=== PATIENT | male | born 1960 | race Caucasian/White ===

== ENCOUNTER 2021-07-25 13:17 | Emergency (ER) | payer BC ==
[2021-07-25] MEDS ORDERED: DECADRON 10MG INJ. IV ONE (13:43)
[2021-07-25] MEDS ORDERED: Sodium Chloride 0.9% 1000 ML 1,000 ML IV STA ×2 (13:45→16:04)
[2021-07-25] MEDS ORDERED: DECADRON 10MG INJ. ONE (13:53)
[2021-07-25] MEDS ORDERED: Sodium Chloride 0.9% 1000 ML 1,000 ML ONE ×2 (13:53→16:05)
[2021-07-25 14:25] LABS: Absolute Neutrophil Ct (ANC) 5.13 (1.4-6.9); Basophil (Absolute #) 0 (0-0.4); Eosinophil (Absolute #) 0 (0-0.5); Hematocrit 52.8 % (42-50); Hemoglobin 18.9 gm/dl (12.5-18.0); Lymphocyte (Absolute #) 0.43 (1.0-4.6); Lymphocytes % 7.4 % (24.0-44.0); Mean Corpuscular Hemoglobin 36.1 pg (26-32); Mean Corpuscular Hgb Concent. 35.8 g/dl (32-36); Mean Platelet Volume 12.2 fl (7.5-11.0); Monocyte (Absolute #) 0.25 (0.0-1.3); Monocytes % 4.3 % (0.0-12.0); Neutrophil % 88.3 % (36.0-66.0); Platelet Count 79 K/mm3 (150-450); Red Blood Count 5.23 M/mm3 (4.1-5.6); Red Cell Distribution Width 12.8 % (11.5-14.0); White Blood Count 5.8 K/mm3 (4.0-10.5)
--- NOTE | 2021-07-25 14:36 | XRAY ---
Indication: Cough. Positive Covid 19. Comparison: August 14, 2011. Portable chest demonstrates new minimal right costophrenic angle interstitial alveolar opacities without consolidation/large effusion. Remaining chest unchanged with COPD and right base fibrosis/scarring with suture material. Heart not enlarged. Bony thorax intact again with mild degenerative changes.
[2021-07-25 14:49] LABS: MAGNESIUM 1.6 mg/dL (1.6-2.3); NT PRO BNP 97.1 pg/mL (0-900)
[2021-07-25 14:50] LABS: Slide Review 1 YES
[2021-07-25] MEDS ORDERED: ROCEPHIN 2 Gm-D5w 50ML BAG** 2 G/50 ML IVPB IV ONE (15:32)
[2021-07-25] MEDS ORDERED: Zithromax 500 MG/ 250 ML NaCl Premix 500 MG/250 ML IVPB IV STA (15:32)
[2021-07-25] MEDS ORDERED: ROCEPHIN 2 Gm-D5w 50ML BAG** 2 G/50 ML IVPB IV STA (15:33)
[2021-07-25] MEDS ORDERED: BABY ASPIRIN 81 MG CHEW PO ONE (15:34)
[2021-07-25] MEDS ORDERED: TYLENOL 325 MG ONE (15:38)
[2021-07-25] MEDS ORDERED: TYLENOL 325 MG PO STA (15:40)
[2021-07-25] MEDS ORDERED: REMDESIVIR 200 MG in Sodium Chloride 0.9% 250 ML 250 ML IV ONE (15:53)
[2021-07-25 15:54] LABS: ALBUMIN 4.3 g/dL (3.5-5.0); ANION GAP 20.7 MEQ/L (5-15); BILIRUBIN,TOTAL 0.8 mg/dL (0.2-1.3); Calcium 9.3 mg/dL (8.4-10.2); Creatinine 1 1.52 mg/dL (0.66-1.25); Potassium 4.1 mmol/L (3.5-5.1); Total Protein 7.1 g/dL (6.3-8.2)
[2021-07-25] MEDS ORDERED: Zithromax 500 MG/ 250 ML NaCl Premix 500 MG/250 ML IVPB IV ONE (16:05)
--- NOTE | 2021-07-25 16:24 | ERPHSYRPT ---
- History of Present Illness Time Seen by Provider: 07/25/21 13:42 Source: patient Exam Limitations: no limitations Patient Subjective Stated Complaint: " I was suppose to come in for a Covid infusion but I'm just too weak and they thought I should come here". Triage Nursing Assessment: Pt presents to ER, noted Covid+. Was suppose to be getting Covid infusion today but "just too weak". Pt does appear weak and states has "fell a couple of times today due to weakness". Pt is alert and oriented x3. Respirations are slightly labored. Lungs clear but diminished throughout. Cough noted with scant sputum. Pt complains of nausea and generalized weakness. Pt is pale, hot to touch. Noted febrile upon triage. Pt denies pain. Physician History: 60 years old male with 1 week history of cough congestion, body aches with fat igue and tiredness with progressive worsening is sent in ER from infusion center where he went for antibody infusion but was not feeling well. Patient reports he has been having multiple episodes of loose stool and is not able to hold much down, feels weak fatigued and tired. This has been going on for the last 3 to 4 days. Denies any hematochezia. No abdominal pain. Has nausea but no vomiting. Also have fever chills responding to Tylenol. Shortness of breath with activity although maintaining oxygen saturation around 95% on room air. Patient did test positive for COVID-19 couple days ago. Timing/Duration: week(s) (1), gradual onset, worse Severity: moderate Modifying Factors: Worsens With: movement Associated Symptoms: nausea, shortness of breath, cough, chills, fever, headaches, loss of appetite, malaise, weakness, No vomiting Allergies/Adverse Reactions: No Known Drug Allergies Allergy (Verified 07/29/21 12:05) Home Medications: Fluticasone/Salmeterol 115/21 [Advair Hfa 115/21 Common canister*] 1 puff IN DAILY 07/25/21 [History] Hx Tetanus, Diphtheria Vaccination/Date Given: Yes Hx Influenza Vaccination/Date Given: Yes Hx Pneumococcal Vaccination/Date Given: No Immunizations Up to Date: Yes Travel Risk - International Travel Have you traveled outside of the country in past 3 weeks: No - Coronavirus Screening Are you exhibiting any of the following symptoms?: Yes Symptoms: Fever, Cough: New Onset Close contact with a COVID-19 positive Pt in past 14-21 Days: Yes - Vaccine Status Have you recieved a Covid-19 vaccination: No - Review of Systems Constitutional: Fever, Chills, Fatigue, Weakness Eyes: No Symptoms Ears, Nose, & Throat: Nose Congestion, Throat Pain Respiratory: Cough, Dyspnea Cardiac: No Symptoms Abdominal/Gastrointestinal: Nausea, Diarrhea Genitourinary Symptoms: No Symptoms Musculoskeletal: No Symptoms Skin: No Symptoms Neurological: Dizziness, Headache Psychological: No Symptoms Endocrine: No Symptoms Hematologic/Lymphatic: No Symptoms Immunological/Allergic: No Symptoms - Past Medical History Pertinent Past Medical History: Yes Respiratory History: COPD, Emphysema - Past Surgical History Past Surgical History: Yes Other Surgical History: RLL LUNG PARTIAL REMOVAL - Social History Smoking Status: Current every day smoker Exposure to second hand smoke: No Drug Use: none Patient Lives Alone: No - Nursing Vital Signs Nursing Vital Signs: Initial Vital Signs Temperature 101.6 F 07/25/21 13:21 Pulse Rate 120 H 07/25/21 13:21 Respiratory Rate 22 07/25/21 13:21 Blood Pressure 131/91 07/25/21 13:21 O2 Sat by Pulse Oximetry 96 07/25/21 13:21 Pain Scale Pain Intensity 0 - Physical Exam General Appearance: no apparent distress, alert Eye Exam: PERRL/EOMI, eyes nml inspection Ears, Nose, Throat Exam: moist mucous membranes, pharyngeal erythema Neck Exam: normal inspection, non-tender, supple, full range of motion, No meningismus Respiratory Exam: diminished breath sounds, rhonchi, wheezing Cardiovascular Exam: regular rate/rhythm, normal heart sounds Gastrointestinal/Abdomen Exam: soft, normal bowel sounds, No tenderness Back Exam: normal inspection, normal range of motion Extremity Exam: normal inspection, normal range of motion Neurologic Exam: alert, oriented x 3, cooperative, 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 tested, normal mood/affect, sensation nml, No motor weakness Skin Exam: normal color SpO2 Interpretation: normal SpO2: 94 O2 Delivery: Room Air - Course EKG Interpreted by Me: RATE ([id number]), Sinus Tach, NORMAL AXIS, NORMAL INTERVALS, Non-specific ST Changes Ordered Tests: Medication Summary Discontinued Medications Generic Name Dose Route Start Last Admin Trade Name Freq PRN Reason Stop Dose Admin Acetaminophen Confirm 07/25/21 15:38 Acetaminophen 325 Mg Tablet Administered 07/25/21 15:39 Dose 975 mg .ROUTE .STK-MED ONE Acetaminophen 975 mg 07/25/21 15:40 07/25/21 15:41 Acetaminophen 325 Mg Tablet PO 07/25/21 15:41 975 mg STAT STA Administration Acetaminophen 650 mg 07/25/21 18:27 Acetaminophen 325 Mg Tablet PO 08/24/21 18:26 Q4H PRN PRN PAIN AND/OR FEVER Acetaminophen 500 - 1,000 mg 07/25/21 20:20 07/27/21 05:57 Acetaminophen 500 Mg Tablet PO 08/24/21 20:19 1,000 mg Q4H PRN PRN Administration HEADACHE Albuterol/Ipratropium 3 ml 07/25/21 19:00 Ipratropium/Albuterol Sulfate 3 Ml Ampul.Neb IH 08/24/21 18:59 Q6HRT MINA Aspirin 324 mg 07/25/21 15:34 07/25/21 15:36 Aspirin 81 Mg Tab.Chew PO 07/25/21 15:35 324 mg STAT ONE Administration Baricitinib 4 mg 07/26/21 10:00 07/28/21 09:34 Baricitinib 2 Mg Tablet PO 08/09/21 09:59 4 mg DAILY MINA Administration Chlordiazepoxide HCl 10 mg 07/26/21 12:00 07/28/21 06:17 Chlordiazepoxide Hcl 10 Mg Capsule PO 08/25/21 11:59 10 mg Q6HT MINA Administration Chlorphenir/Hydrocodone Polistirex 5 ml 07/25/21 20:22 07/28/21 09:44 Hydrocodone/Chlorphen P-Stirex 1 Ml Meri.Er.12h PO 08/24/21 20:21 5 ml [id number] PRN Administration COUGH Dexamethasone Sodium Phosphate 6 mg 07/25/21 13:43 07/25/21 13:55 Dexamethasone Sod Phosphate 10 Mg/Ml IV 07/25/21 13:44 6 mg STAT ONE Administration Dexamethasone Sodium Phosphate Confirm 07/25/21 13:53 Dexamethasone Sod Phosphate 10 Mg/Ml Administered 07/25/21 13:54 Dose 10 mg .ROUTE .STK-MED ONE Dexamethasone Sodium Phosphate 6 mg 07/26/21 10:00 07/28/21 09:34 Dexamethasone Sod Phosphate 10 Mg/Ml IV 08/05/21 09:59 Not Given DAILY MINA Enoxaparin Sodium 40 mg 07/26/21 10:00 07/28/21 09:34 Enoxaparin Sodium 40 Mg/0.4 Ml Syringe SQ 08/25/21 09:59 40 mg DAILY MINA Administration Fluticasone Propionate 0 gm 07/27/21 10:00 07/28/21 09:34 Fluticasone Propionate 16 Gm Bottle Nasal Swain NS 08/26/21 09:59 16 gm DAILY MINA Administration Sodium Chloride 1,000 mls @ 999 mls/hr 07/25/21 13:45 07/25/21 15:04 Sodium Chloride 0.9% 1000 Ml IV 07/25/21 14:45 Infused .Q1H1M STA Infusion Sodium Chloride Confirm 07/25/21 13:53 Sodium Chloride 0.9% 1000 Ml Administered 07/25/21 13:54 Dose 1,000 mls @ ud .ROUTE .STK-MED ONE Ceftriaxone Sodium/Dextrose Confirm 07/25/21 15:32 Rocephin 2 Gm-D5w 50ml Bag Administered 07/25/21 15:33 Dose 2 g in 50 mls @ ud IV .STK-MED ONE Azithromycin 500 mg in 250 mls @ 250 mls/hr 07/25/21 15:32 07/25/21 16:07 Zithromax 500 Mg/ 250 Ml Nacl Premix IV 07/25/21 16:31 250 mls/hr STAT STA 250 mls/hr Administration Ceftriaxone Sodium/Dextrose 2 g in 50 mls @ 100 mls/hr 07/25/21 15:33 07/25/21 16:09 Rocephin 2 Gm-D5w 50ml Bag IV 07/25/21 16:02 Infused STAT STA Infusion Remdesivir 200 mg/ Sodium 250 mls @ 125 mls/hr 07/25/21 15:53 07/25/21 18:00 Chloride IV 07/25/21 17:52 125 mls/hr ONCE ONE Administration Sodium Chloride 1,000 mls @ 999 mls/hr 07/25/21 16:04 07/25/21 16:06 Sodium Chloride 0.9% 1000 Ml IV 07/25/21 17:04 999 mls/hr .Q1H1M STA Administration Azithromycin Confirm 07/25/21 16:05 Zithromax 500 Mg/ 250 Ml Nacl Premix Administered 07/25/21 16:06 Dose 500 mg in 250 mls @ ud IV .STK-MED ONE Sodium Chloride Confirm 07/25/21 16:05 Sodium Chloride 0.9% 1000 Ml Administered 07/25/21 16:06 Dose 1,000 mls @ ud .ROUTE .STK-MED ONE Remdesivir 100 mg/ Sodium 100 mls @ 100 mls/hr 07/26/21 16:00 07/27/21 15:39 Chloride IV 07/29/21 16:59 100 mls/hr Q24H MINA Administration Lactated Ringer's Confirm 07/25/21 20:11 Lactated Ringers Administered 07/25/21 20:12 Dose 1,000 mls @ ud IV .STK-MED ONE Lactated Ringer's 1,000 mls @ 30 mls/hr 07/25/21 20:30 07/27/21 16:40 Lactated Ringers IV 08/24/21 20:29 125 mls/hr .Q24H MINA Administration Lorazepam 1 mg 07/25/21 20:19 07/27/21 15:48 Lorazepam 1 Mg Tablet PO 08/24/21 20:18 1 mg Q4H PRN PRN Administration ANXIETY Lorazepam 1 mg 07/25/21 20:19 Lorazepam 2 Mg/1 Ml 2 Mg Vial IV 08/24/21 20:18 Q4H PRN PRN ANXIETY/AGITATION Ondansetron HCl 4 mg 07/25/21 18:27 Ondansetron Hcl 4 Mg/2 Ml Vial IV 08/24/21 18:26 Q6H PRN PRN NAUSEA/VOMITING Pantoprazole Sodium 40 mg 07/26/21 10:00 07/28/21 09:34 Pantoprazole 40 Mg Vial IV 08/25/21 09:59 Not Given Q24H10 MINA Fluticasone/Salmeterol 1 puff 07/27/21 10:00 07/26/21 19:30 Fluticasone/Salmeterol 115/ - 120 Puff Common Canister IH 08/26/21 09:59 1 puff DAILY MINA Administration Fluticasone/Salmeterol 2 puff 07/27/21 08:13 07/28/21 07:10 Fluticasone/Salmeterol 115/21 - 120 Puff Common Canister IH 08/26/21 06:59 2 puff BIDRT MINA Administration Lab/Rad Data: Laboratory Result Diagrams 07/25/21 13:30 07/25/21 15:39 Laboratory Results 07/25/21 07/25/21 07/25/21 Range/Units 17:20 16:12 15:47 WBC (4.0-10.5) K/mm3 RBC (4.1-5.6) M/mm3 Hgb (12.5-18.0) gm/dl Hct (42-50) % MCV (78-100) fl MCH (26-32) pg MCHC (32-36) g/dl RDW (11.5-14.0) % Plt Count (150-450) K/mm3 MPV (7.5-11.0) fl Gran % (36.0-66.0) % Eos # (Auto) (0-0.5) Absolute Lymphs (auto) (1.0-4.6) Absolute Monos (auto) (0.0-1.3) Lymphocytes % (24.0-44.0) % Monocytes % (0.0-12.0) % Eosinophils % (0.00-5.0) % Basophils % (0.0-0.4) % Absolute Granulocytes (1.4-6.9) Basophils # (0-0.4) D-Dimer (215-500) ng/mL Sodium (137-145) mmol/L Potassium (3.5-5.1) mmol/L Chloride (98-107) mmol/L Carbon Dioxide (22-30) mmol/L Anion Gap (5-15) MEQ/L BUN (9-20) mg/dL Creatinine (0.66-1.25) mg/dL Estimated GFR ML/MIN Glucose (74-106) mg/dL Lactic Acid 2.6 H (0.4-2.0) Calcium (8.4-10.2) mg/dL Magnesium (1.6-2.3) mg/dL Total Bilirubin (0.2-1.3) mg/dL AST (17-59) U/L ALT (0-50) U/L Alkaline Phosphatase (38-126) U/L Troponin I 0.044 H* (0.000-0.034) ng/mL NT-Pro-B Natriuret Pep (0-900) pg/mL Serum Total Protein (6.3-8.2) g/dL Albumin (3.5-5.0) g/dL Urine Color YELLOW (YELLOW) Urine Appearance SLIGHTLY CLOUDY (CLEAR) Urine pH 5.0 (5-6) Ur Specific [place] 1.019 (1.005-1.025) Urine Protein 100 (Negative) Urine Ketones TRACE (NEGATIVE) Urine Blood MODERATE (0-5) Rafa/ul Urine Nitrite NEGATIVE (NEGATIVE) Urine Bilirubin NEGATIVE (NEGATIVE) Urine Urobilinogen NEGATIVE (0-1) mg/dL Ur Leukocyte Esterase NEGATIVE (NEGATIVE) Urine WBC (Auto) 0-2 (0-5) /HPF Urine RBC (Auto) NONE (0-2) /HPF U Hyaline Cast (Auto) 3-5 (0-2) /LPF U Epithel Cells (Auto) NONE (FEW) /HPF Urine Bacteria (Auto) NONE (NEGATIVE) /HPF Urine Mucus (Auto) SLIGHT (NEGATIVE) /HPF Urine Culture Reflexed NO (NO) Urine Glucose NEGATIVE (NEGATIVE) mg/dL Slides for Path Review 07/25/21 07/25/21 07/25/21 Range/Units 15:39 14:00 13:30 WBC (4.0-10.5) K/mm3 RBC (4.1-5.6) M/mm3 Hgb (12.5-18.0) gm/dl Hct (42-50) % MCV (78-100) fl MCH (26-32) pg MCHC (32-36) g/dl RDW (11.5-14.0) % Plt Count (150-450) K/mm3 MPV (7.5-11.0) fl Gran % (36.0-66.0) % Eos # (Auto) (0-0.5) Absolute Lymphs (auto) (1.0-4.6) Absolute Monos (auto) (0.0-1.3) Lymphocytes % (24.0-44.0) % Monocytes % (0.0-12.0) % Eosinophils % (0.00-5.0) % Basophils % (0.0-0.4) % Absolute Granulocytes (1.4-6.9) Basophils # (0-0.4) D-Dimer 1610 H* (215-500) ng/mL Sodium 124 L (137-145) mmol/L Potassium 4.1 (3.5-5.1) mmol/L Chloride 92 L (98-107) mmol/L Carbon Dioxide 16 L* (22-30) mmol/L Anion Gap 20.7 H (5-15) MEQ/L BUN 40 H (9-20) mg/dL Creatinine 1.52 H (0.66-1.25) mg/dL Estimated GFR 50.0 ML/MIN Glucose 132 H (74-106) mg/dL Lactic Acid 4.3 H (0.4-2.0) Calcium 9.3 (8.4-10.2) mg/dL Magnesium (1.6-2.3) mg/dL Total Bilirubin 0.80 (0.2-1.3) mg/dL AST 138 H (17-59) U/L ALT 46 (0-50) U/L Alkaline Phosphatase 42 (38-126) U/L Troponin I (0.000-0.034) ng/mL NT-Pro-B Natriuret Pep (0-900) pg/mL Serum Total Protein 7.1 (6.3-8.2) g/dL Albumin 4.3 (3.5-5.0) g/dL Urine Color (YELLOW) Urine Appearance (CLEAR) Urine pH (5-6) Ur Specific [place] (1.005-1.025) Urine Protein (Negative) Urine Ketones (NEGATIVE) Urine Blood (0-5) Rafa/ul Urine Nitrite (NEGATIVE) Urine Bilirubin (NEGATIVE) Urine Urobilinogen (0-1) mg/dL Ur Leukocyte Esterase (NEGATIVE) Urine WBC (Auto) (0-5) /HPF Urine RBC (Auto) (0-2) /HPF U Hyaline Cast (Auto) (0-2) /LPF U Epithel Cells (Auto) (FEW) /HPF Urine Bacteria (Auto) (NEGATIVE) /HPF Urine Mucus (Auto) (NEGATIVE) /HPF Urine Culture Reflexed (NO) Urine Glucose (NEGATIVE) mg/dL Slides for Path Review 07/25/21 07/25/21 07/25/21 Range/Units 13:30 13:30 13:30 WBC 5.8 (4.0-10.5) K/mm3 RBC 5.23 (4.1-5.6) M/mm3 Hgb 18.9 H (12.5-18.0) gm/dl Hct 52.8 H (42-50) % MCV 101.0 H (78-100) fl MCH 36.1 H (26-32) pg MCHC 35.8 (32-36) g/dl RDW 12.8 (11.5-14.0) % Plt Count 79 L (150-450) K/mm3 MPV 12.2 H (7.5-11.0) fl Gran % 88.3 H (36.0-66.0) % Eos # (Auto) 0 (0-0.5) Absolute Lymphs (auto) 0.43 L (1.0-4.6) Absolute Monos (auto) 0.25 (0.0-1.3) Lymphocytes % 7.4 L (24.0-44.0) % Monocytes % 4.3 (0.0-12.0) % Eosinophils % 0.0 (0.00-5.0) % Basophils % 0.0 (0.0-0.4) % Absolute Granulocytes 5.13 (1.4-6.9) Basophils # 0 (0-0.4) D-Dimer (215-500) ng/mL Sodium (137-145) mmol/L Potassium (3.5-5.1) mmol/L Chloride (98-107) mmol/L Carbon Dioxide (22-30) mmol/L Anion Gap (5-15) MEQ/L BUN (9-20) mg/dL Creatinine (0.66-1.25) mg/dL Estimated GFR ML/MIN Glucose (74-106) mg/dL Lactic Acid (0.4-2.0) Calcium (8.4-10.2) mg/dL Magnesium 1.6 (1.6-2.3) mg/dL Total Bilirubin (0.2-1.3) mg/dL AST (17-59) U/L ALT (0-50) U/L Alkaline Phosphatase (38-126) U/L Troponin I 0.043 H* (0.000-0.034) ng/mL NT-Pro-B Natriuret Pep 97.1 (0-900) pg/mL Serum Total Protein (6.3-8.2) g/dL Albumin (3.5-5.0) g/dL Urine Color (YELLOW) Urine Appearance (CLEAR) Urine pH (5-6) Ur Specific [place] (1.005-1.025) Urine Protein (Negative) Urine Ketones (NEGATIVE) Urine Blood (0-5) Rafa/ul Urine Nitrite (NEGATIVE) Urine Bilirubin (NEGATIVE) Urine Urobilinogen (0-1) mg/dL Ur Leukocyte Esterase (NEGATIVE) Urine WBC (Auto) (0-5) /HPF Urine RBC (Auto) (0-2) /HPF U Hyaline Cast (Auto) (0-2) /LPF U Epithel Cells (Auto) (FEW) /HPF Urine Bacteria (Auto) (NEGATIVE) /HPF Urine Mucus (Auto) (NEGATIVE) /HPF Urine Culture Reflexed (NO) Urine Glucose (NEGATIVE) mg/dL Slides for Path Review YES - Progress Progress: improved, re-examined Progress Note: 07/25/21 16:31 60 years old is evaluated for Covid symptoms with shortness of breath and worsening diarrhea with weakness. Given fluid bolus. Work-up showed normal white count and chemistries consistent with dehydration with worsening of renal function, low bicarb and low sodium with elevated gap. Also has a lactate of 4.3 and chest x-ray showed some airspace disease, given a dose of antibiotics along with the remdesivir and steroids. Patient is maintaining oxygen saturation on room air. On recheck his lactate is improving. Patient spiked a fever of 101 while in here and given Tylenol. I believe patient would benefit with admission with hydration and recheck of chemistries along with antivirals. Discussed with Dr. Kern and patient is accepted for admission. Patient has elevated D-dimer in 1600 but is having GFR which is borderline, discussed with Dr. Kern, will hold off on CTA and recommended continue with 40 mg Lovenox and patient would be evaluated later to see if he needs CTA are can go without it. Plan discussed with patient who understand and agrees with it. Discussed with Dr.: Other (Dr. Kern) Will see patient in: hospital (observation) Counseled pt/family regarding: lab results, diagnosis, rad results, smoking ce ssation - Departure Departure Disposition: Observation Clinical Impression: Hyponatremia, Gastroenteritis, Pneumonia due to COVID-19 virus, SHARYN (acute kidney injury), Dehydration, Elevated d-dimer Condition: Stable Critical Care Time: No
[2021-07-25 17:50] LABS: Appearance SLIGHTLY CLOUDY (CLEAR); Bilirubin NEGATIVE (NEGATIVE); Blood MODERATE Ery/ul (0-5); Glucose NEGATIVE (NEGATIVE); Ketones TRACE (NEGATIVE); Leukocyte Esterase NEGATIVE (NEGATIVE); Mucus SLIGHT /HPF (NEGATIVE); Nitrite NEGATIVE (NEGATIVE); Protein,Urine Dip 100 (Negative); Specific Gravity 1.019 (1.005-1.025); Urobilinogen NEGATIVE mg/dL (0-1); WBC 0-2 /HPF (0-5)
[2021-07-25] MEDS ORDERED: TYLENOL 325 MG PO PRN (18:27)
[2021-07-25] MEDS ORDERED: Zofran 4 MG/2 ML VIAL IV PRN (18:27)
[2021-07-25] MEDS ORDERED: DUONEB 0.5-3 MG/3 ml Neb IH SCH (19:00)
[2021-07-25] MEDS ORDERED: Lactated Ringers 1,000 ML IV ONE (20:11)
[2021-07-25] MEDS ORDERED: Ativan 2 MG/1 ML VIAL IV PRN (20:19)
[2021-07-25] MEDS ORDERED: Ativan 1 MG PO PRN (20:19)
[2021-07-25] MEDS: Lactated Ringers 1,000 ML IV SCH (20:23)
[2021-07-26] MEDS: HYDROCODONE-CHLORPHEN ER SUSP PO PRN ×2 (03:55→16:14)
[2021-07-26] MEDS: Lactated Ringers 1,000 ML IV SCH ×3 (04:07→17:14)
[2021-07-26 05:07] LABS: Hematocrit 44.1 % (42-50); Hemoglobin 16.2 gm/dl (12.5-18.0); Mean Cell Volume 100.9 fl (78-100); Mean Corpuscular Hemoglobin 37.1 pg (26-32); Mean Corpuscular Hgb Concent. 36.7 g/dl (32-36); Mean Platelet Volume 10.6 fl (7.5-11.0); Platelet Count 64 K/mm3 (150-450); Red Blood Count 4.37 M/mm3 (4.1-5.6); Red Cell Distribution Width 12.8 % (11.5-14.0); White Blood Count 5.1 K/mm3 (4.0-10.5)
[2021-07-26 05:35] LABS: ALBUMIN 3.3 g/dL (3.5-5.0); ALKALINE PHOSPHATASE 36 U/L (38-126); ANION GAP 9.7 MEQ/L (5-15); BLOOD UREA NITROGEN 22 mg/dL (9-20); CHLORIDE 102 mmol/L (98-107); Carbon Dioxide 24 mmol/L (22-30); Creatinine 1 0.84 mg/dL (0.66-1.25); EST GLOMERULAR FILTRATION RATE > 60.0 ML/MIN; Glucose 100 mg/dL (74-106); Potassium 3.9 mmol/L (3.5-5.1); SGOT/AST 125 U/L (17-59); SGPT/ALT 44 U/L (0-50); SODIUM 132 mmol/L (137-145); Total Protein 5.9 g/dL (6.3-8.2)
[2021-07-26 08:30] LABS: BAND 14 % (0.0-2.0); Lymphocytes 10 % (24-44); Neutrophils 76 % (36.-66.); Platelet Estimate DECREASED (NORMAL); Total Cells Counted 100
[2021-07-26] MEDS: OLUMIANT PO SCH (09:40)
[2021-07-26] MEDS: DECADRON 10MG INJ. IV SCH (09:40)
[2021-07-26] MEDS: PROTONIX 40 MG IV IV SCH (09:40)
[2021-07-26] MEDS: ENOXAPARIN SODIUM SQ SCH (09:40)
[2021-07-26 11:20] LABS: Folate (Folic Acid) 4.4 ng/mL (2.76 - >20)
--- NOTE | 2021-07-26 12:09 | HP ---
CHIEF COMPLAINT: Vomiting for five days, diarrhea for five days, increasing coughing. HISTORY OF PRESENT ILLNESS: The patient is a 60-year-old white male with the above symptoms. 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 He has gotten so weak he cannot walk, has to stay in bed. He has had fever, chills, aching all over. He feels short of breath but not severely so. He did not desaturate on his pulse ox while in the emergency room. He takes some Advair 1 puff a day for chronic obstructive pulmonary disease besides that he states he does not have any chronic health problems. The patient, I believe, lives with his . His job is out of town. 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 He has been smoking for 50 years probably. MEDICATIONS: Steroid inhaler. ALLERGIES: NKDA. PAST MEDICAL HISTORY: Chronic obstructive pulmonary disease, emphysema. PAST SURGICAL HISTORY: Right lower lobe lung partial removal. REVIEW OF SYSTEMS: HEENT: No problems hearing or seeing. He states his taste is okay. CHEST: Kind of aches from coughing. No heaviness or pressure feeling. Nonproductive cough. CVS: No exertional chest pain or heart attacks. ABDOMEN: No nausea or vomiting until five days ago and persistent since then, vomits once or twice a day. He has gotten progressively weaker. EXTREMITIES: Some arthritis of the knees to some degree. States it is secondary to his job and age. PHYSICAL EXAMINATION: The patient is alert, orientated, talkative and coughing frequently. VITAL SIGNS: Temperature 101.6F, pulse 120, respirations 22, blood pressure 130/90. HEENT: Pupils equal and reactive to light. NECK: Supple without adenopathy. CHEST: Few wheezes. CVS: Regular rate. No murmurs or gallops. ABDOMEN: Scaphoid, thin, slightly tender all over, increased bowel sounds. IMPRESSION: The patient tested positive for COVID and does have some acidosis. His sodium is low. He has some macrocytic hemoglobin I think may reflect alcohol but will get a B12 and a folate level. He states he does not drink more than two or three drinks a day. PROGNOSIS: Fair especially given the chest x-ray just shows some emphysema at this time. However, we are going to treat him full blast with our COVID drugs because of his severe emphysema it looks like as well as the prolonged gastroenteritis with metabolic acidosis.
[2021-07-26] MEDS: TYLENOL EXTRA STRENGTH 500 MG PO PRN (12:12)
[2021-07-26] MEDS: Librium 10 MG PO SCH ×3 (12:22→23:44)
[2021-07-26] MEDS: REMDESIVIR 100 MG in Sodium Chloride 0.9% 100 ML BAG 100 ML IV SCH (16:06)
[2021-07-27] MEDS: Lactated Ringers 1,000 ML IV SCH ×3 (00:58→16:40)
[2021-07-27] MEDS: HYDROCODONE-CHLORPHEN ER SUSP PO PRN ×2 (03:24→15:55)
[2021-07-27 05:43] LABS: Hematocrit 41.4 % (42-50); Hemoglobin 14.8 gm/dl (12.5-18.0); Mean Corpuscular Hemoglobin 36.5 pg (26-32); Mean Corpuscular Hgb Concent. 35.7 g/dl (32-36); Mean Platelet Volume 11.1 fl (7.5-11.0); Platelet Count 79 K/mm3 (150-450); Red Blood Count 4.06 M/mm3 (4.1-5.6); Red Cell Distribution Width 12.6 % (11.5-14.0)
[2021-07-27] MEDS: Librium 10 MG PO SCH ×3 (05:51→17:56)
[2021-07-27] MEDS: TYLENOL EXTRA STRENGTH 500 MG PO PRN (05:57)
[2021-07-27 06:34] LABS: ALBUMIN 2.9 g/dL (3.5-5.0); ALKALINE PHOSPHATASE 30 U/L (38-126); ANION GAP 9.2 MEQ/L (5-15); BLOOD UREA NITROGEN 15 mg/dL (9-20); CHLORIDE 100 mmol/L (98-107); Calcium 7.4 mg/dL (8.4-10.2); Carbon Dioxide 25 mmol/L (22-30); Creatinine 1 0.74 mg/dL (0.66-1.25); EST GLOMERULAR FILTRATION RATE > 60.0 ML/MIN; Glucose 92 mg/dL (74-106); Potassium 3.6 mmol/L (3.5-5.1); SGOT/AST 110 U/L (17-59); SGPT/ALT 42 U/L (0-50); SODIUM 130 mmol/L (137-145); Total Protein 5.5 g/dL (6.3-8.2)
[2021-07-27] MEDS: Advair Hfa 115/21 Common canister IH SCH ×2 (07:25→19:15)
[2021-07-27] MEDS: PROTONIX 40 MG IV IV SCH (09:00)
[2021-07-27] MEDS: ENOXAPARIN SODIUM SQ SCH (09:00)
[2021-07-27] MEDS: DECADRON 10MG INJ. IV SCH (09:00)
[2021-07-27] MEDS: OLUMIANT PO SCH (09:00)
[2021-07-27 09:45] LABS: Slide Review YES
[2021-07-27] MEDS ORDERED: Advair Hfa 115/21 Common canister IH SCH (10:00)
[2021-07-27] MEDS: Flonase NASAL NS SCH (10:04)
[2021-07-27] MEDS: REMDESIVIR 100 MG in Sodium Chloride 0.9% 100 ML BAG 100 ML IV SCH (15:39)
[2021-07-28] MEDS: Librium 10 MG PO SCH ×2 (00:50→06:17)
[2021-07-28 05:22] LABS: Hematocrit 48.7 % (42-50); Hemoglobin 16.6 gm/dl (12.5-18.0); Mean Cell Volume 103.8 fl (78-100); Mean Corpuscular Hemoglobin 35.4 pg (26-32); Mean Corpuscular Hgb Concent. 34.1 g/dl (32-36); Mean Platelet Volume 10.8 fl (7.5-11.0); Platelet Count 128 K/mm3 (150-450); Red Blood Count 4.69 M/mm3 (4.1-5.6); Red Cell Distribution Width 12.8 % (11.5-14.0); White Blood Count 7.5 K/mm3 (4.0-10.5)
[2021-07-28 05:46] LABS: ALBUMIN 3.5 g/dL (3.5-5.0); ALKALINE PHOSPHATASE 36 U/L (38-126); ANION GAP 10.1 MEQ/L (5-15); BLOOD UREA NITROGEN 13 mg/dL (9-20); CHLORIDE 96 mmol/L (98-107); Calcium 7.9 mg/dL (8.4-10.2); Carbon Dioxide 28 mmol/L (22-30); Creatinine 1 0.77 mg/dL (0.66-1.25); EST GLOMERULAR FILTRATION RATE > 60.0 ML/MIN; Glucose 104 mg/dL (74-106); Potassium 3.6 mmol/L (3.5-5.1); SGOT/AST 114 U/L (17-59); SGPT/ALT 50 U/L (0-50); SODIUM 131 mmol/L (137-145); Total Protein 6.2 g/dL (6.3-8.2)
[2021-07-28] MEDS: Advair Hfa 115/21 Common canister IH SCH (07:10)
[2021-07-28 08:16] VITALS: BP 138/80; PULSE 89
[2021-07-28] MEDS: DECADRON 10MG INJ. IV SCH (09:34)
[2021-07-28] MEDS: Flonase NASAL NS SCH (09:34)
[2021-07-28] MEDS: PROTONIX 40 MG IV IV SCH (09:34)
[2021-07-28] MEDS: OLUMIANT PO SCH (09:34)
[2021-07-28] MEDS: ENOXAPARIN SODIUM SQ SCH (09:34)
[2021-07-28] MEDS: HYDROCODONE-CHLORPHEN ER SUSP PO PRN (09:44)
--- NOTE | 2021-07-29 08:06 | DS ---
ADMISSION DIAGNOSES: 1) COVID gastroenteritis. 2) Temperature and dehydration. 3) Hypernatremia. 4) COVID pneumonia. 5) Chronic obstructive pulmonary disease. DISCHARGE DIAGNOSES: 1) COVID GASTROENTERITIS. 2) TEMPERATURE AND DEHYDRATION. 3) HYPERNATREMIA. 4) COVID PNEUMONIA. 5) CHRONIC OBSTRUCTIVE PULMONARY DISEASE. HOSPITAL COURSE: The patient presented after not being able to hold anything down for three to four days, feeling terrible, weak, trouble walking and increasing shortness of breath. Initially, his O2 saturations were 88 to 90%. However, they did drop and required 3 liters of oxygen during his stay but did not get worse. His D-dimer was mildly elevated on 07/28/2021 at 1330. His electrolytes were almost back to normal. Sodium slightly low at 131. Creatinine was normal at 0.77. Glucose 104. He was back to eating normal for the last really three days. He still has a bad cough. COVID test was positive and his had also turned positive. He feels like he is able to take care of himself at home with the help of his who apparently is not that ill. He has agreed to continue his oxygen at home at 2 to 3 liters to keep his O2 saturation greater than 90% and to call if he has a problem with doing that. He was sent home on some prednisone for his chronic obstructive pulmonary disease at 20 mg for five days and 10 mg for five days. He was on some Librium here for some anxiety and the fact that he does drink a fair amount on a daily basis. He never had any problems with anxiety or withdrawal symptoms. Advised him to get vaccinated in one month. PROGNOSIS: [place] to be good.
[2021-07-30 21:20] VITALS: O2SAT 94
== END 2021-07-28 10:36 | disposition home or self-care (01) ==
LOC: ED 13:17 → MED SURG 17:49
PROVIDERS: ADMIT Family Medicine; ATTEND Family Medicine
DX: U07.1 COVID-19 (principal); K52.9 Noninfective gastroenteritis and colitis, unspecified; J12.82 Pneumonia due to coronavirus disease 2019; E87.0 Hyperosmolality and hypernatremia; J44.9 Chronic obstructive pulmonary disease, unspecified; E86.0 Dehydration; E87.2 Acidosis
CPT/HCPCS: 36000; 36415; 71045; 80053; 81001; 82607; 82746; 83605; 83735; 83880; 84484; 85025; 85027; 85379; 87040; 93005; 93041; 93268; 94640; 94762; 96360; 96374; 99285; G0378; J0248; J0456; J0696; J1100; J1650; A9270-GY

== ENCOUNTER 2021-07-29 11:39 | Emergency (ER) | payer BC ==
--- NOTE | 2021-07-29 11:46 | ERPHSYRPT ---
- History of Present Illness Time Seen by Provider: 07/29/21 11:45 Source: patient, EMS Exam Limitations: no limitations Physician History: This is a 60-year-old white male who was discharged to home from [facility] on 07/28/2021 with the diagnoses of Covid gastroenteritis, fever, dehydration, hypernatremia, Covid pneumonia and COPD. Patient was discharged to home and agreed to continue his oxygen at home at 2 to 3 L to keep his oxygen saturations greater than 90. The patient was sent home on prednisone. There were concerns today that the patient was short of breath and his oxygen saturations drop in the 80s. However, there appears to be some difficulty in using the equipment. Patient was brought into the hospital by EMS. We will do a work-up and have respiratory evaluate this patient and make sure that there is an understanding of how to use the oxygen equipment. Patient's was instructed to contact [facility] [place] as well. On 2 L oxygen nasal cannula in the emergency room, patient states that he is feeling great and breathing fine and his oxygenation saturations on these 2 L of oxygen is 95% he does not have any chest pain. He has no abdominal pain. Timing/Duration: today Cough Quality/Degree: mild Possible Cause: occasional episodes Modifying Factors: Improves With: activity Associated Symptoms: shortness of breath Allergies/Adverse Reactions: No Known Drug Allergies Allergy (Verified 07/29/21 12:05) Home Medications: Fluticasone/Salmeterol 115/21 [Advair Hfa 115/21 Common canister*] 1 puff IN DAILY 07/25/21 [History] Hx Tetanus, Diphtheria Vaccination/Date Given: Yes Hx Influenza Vaccination/Date Given: Yes Hx Pneumococcal Vaccination/Date Given: No Travel Risk - Coronavirus Screening Are you exhibiting any of the following symptoms?: Yes Symptoms: Cough: New Onset, Shortness of Breath Close contact with a COVID-19 positive Pt in past 14-21 Days: No - Vaccine Status Have you recieved a Covid-19 vaccination: No - Review of Systems Constitutional: No Symptoms Eyes: No Symptoms Ears, Nose, & Throat: No Symptoms Respiratory: Dyspnea on Exertion (SIMMONS) Cardiac: No Symptoms Abdominal/Gastrointestinal: No Symptoms Genitourinary Symptoms: No Symptoms Musculoskeletal: No Symptoms Skin: No Symptoms Neurological: No Symptoms Psychological: No Symptoms Endocrine: No Symptoms Hematologic/Lymphatic: No Symptoms Immunological/Allergic: No Symptoms All Other Systems: Reviewed and Negative - Past Medical History Pertinent Past Medical History: Yes Respiratory History: COPD, Emphysema - Past Surgical History Past Surgical History: Yes Other Surgical History: RLL LUNG PARTIAL REMOVAL - Social History Smoking Status: Current every day smoker How long have you smoked: 1PPD Exposure to second hand smoke: Yes Drug Use: none Patient Lives Alone: No - Nursing Vital Signs Nursing Vital Signs: Initial Vital Signs Temperature 97.4 F 07/29/21 11:48 Pulse Rate 78 07/29/21 11:48 Respiratory Rate 20 07/29/21 11:48 Blood Pressure 119/70 07/29/21 11:48 O2 Sat by Pulse Oximetry 92 L 07/29/21 11:48 Pain Scale Pain Intensity 0 - Physical Exam General Appearance: no apparent distress, alert, anxiety, thin Eye Exam: PERRL/EOMI, eyes nml inspection Ears, Nose, Throat Exam: normal ENT inspection, moist mucous membranes Neck Exam: normal inspection, non-tender, supple, full range of motion Respiratory Exam: normal breath sounds, lungs clear, airway intact, No chest tenderness, No respiratory distress Cardiovascular Exam: regular rate/rhythm, normal heart sounds, normal peripheral pulses Gastrointestinal/Abdomen Exam: soft, normal bowel sounds, No tenderness Rectal Exam: not done Back Exam: normal inspection, normal range of motion, No CVA tenderness, No vertebral tenderness Extremity Exam: normal inspection, normal range of motion, pelvis stable Neurologic Exam: alert, oriented x 3, cooperative, 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 today's EKG has not changed since the comparison eKG dated January 2015) Ordered Tests: Active Orders 24 hr Category Date Time Status EKG-ER Only STAT Care 07/29/21 11:54 Active CBC W DIFF Stat Lab 07/29/21 12:20 Completed CMP Stat Lab 07/29/21 12:20 Completed Lactic Acid Stat Lab 07/29/21 12:20 Completed Manual Differential NC Stat Lab 07/29/21 12:20 Completed NT PRO BNP Stat Lab 07/29/21 12:20 Completed TROPONIN Q3H Lab 07/29/21 12:20 Completed TROPONIN Q3H Lab 07/29/21 15:00 Ordered TROPONIN Q3H Lab 07/29/21 18:00 Ordered TROPONIN Q3H Lab 07/29/21 21:00 Ordered TROPONIN Q3H Lab 07/30/21 00:00 Ordered Lab/Rad Data: Laboratory Result Diagrams 07/29/21 12:20 07/29/21 12:20 Laboratory Results 07/29/21 07/29/21 07/29/21 Range/Units 12:20 12:20 12:20 WBC (4.0-10.5) K/mm3 RBC (4.1-5.6) M/mm3 Hgb (12.5-18.0) gm/dl Hct (42-50) % MCV (78-100) fl MCH (26-32) pg MCHC (32-36) g/dl RDW (11.5-14.0) % Plt Count (150-450) K/mm3 MPV (7.5-11.0) fl Absolute Granulocytes (1.4-6.9) Segmented Neutrophils (36.-66.) % Band Neutrophils (0.0-2.0) % Lymphocytes (Manual) (24-44) % Monocytes (Manual) (0.0-12.0) % Eosinophils (Manual) (0.00-3.0) % Platelet Estimate (NORMAL) RBC Morphology Macrocytosis Sodium 131 L (137-145) mmol/L Potassium 3.4 L (3.5-5.1) mmol/L Chloride 99 (98-107) mmol/L Carbon Dioxide 26 (22-30) mmol/L Anion Gap 9.1 (5-15) MEQ/L BUN 11 (9-20) mg/dL Creatinine 0.77 (0.66-1.25) mg/dL Estimated GFR > 60.0 ML/MIN Glucose 123 H (74-106) mg/dL Lactic Acid 2.2 H (0.4-2.0) Calcium 7.5 L (8.4-10.2) mg/dL Total Bilirubin 1.40 H (0.2-1.3) mg/dL AST 84 H (17-59) U/L ALT 48 (0-50) U/L Alkaline Phosphatase 44 (38-126) U/L Troponin I < 0.012 (0.000-0.034) ng/mL NT-Pro-B Natriuret Pep 284 (0-900) pg/mL Serum Total Protein 5.9 L (6.3-8.2) g/dL Albumin 3.1 L (3.5-5.0) g/dL 07/29/21 Range/Units 12:20 WBC 8.2 (4.0-10.5) K/mm3 RBC 4.13 (4.1-5.6) M/mm3 Hgb 15.2 (12.5-18.0) gm/dl Hct 42.5 (42-50) % MCV 102.9 H (78-100) fl MCH 36.8 H (26-32) pg MCHC 35.8 (32-36) g/dl RDW 12.9 (11.5-14.0) % Plt Count 206 D (150-450) K/mm3 MPV 10.0 (7.5-11.0) fl Absolute Granulocytes 7.34 H (1.4-6.9) Segmented Neutrophils 73 H (36.-66.) % Band Neutrophils 17 H (0.0-2.0) % Lymphocytes (Manual) 6 L (24-44) % Monocytes (Manual) 3 (0.0-12.0) % Eosinophils (Manual) 1 (0.00-3.0) % Platelet Estimate NORMAL (NORMAL) RBC Morphology NORMAL Macrocytosis 1+ Sodium (137-145) mmol/L Potassium (3.5-5.1) mmol/L Chloride (98-107) mmol/L Carbon Dioxide (22-30) mmol/L Anion Gap (5-15) MEQ/L BUN (9-20) mg/dL Creatinine (0.66-1.25) mg/dL Estimated GFR ML/MIN Glucose (74-106) mg/dL Lactic Acid (0.4-2.0) Calcium (8.4-10.2) mg/dL Total Bilirubin (0.2-1.3) mg/dL AST (17-59) U/L ALT (0-50) U/L Alkaline Phosphatase (38-126) U/L Troponin I (0.000-0.034) ng/mL NT-Pro-B Natriuret Pep (0-900) pg/mL Serum Total Protein (6.3-8.2) g/dL Albumin (3.5-5.0) g/dL - Progress Progress: improved Air Movement: good Blood Culture(s) Obtained: No Antibiotics given: No Counseled pt/family regarding: lab results, diagnosis, need for follow-up - Departure Departure Disposition: Home Clinical Impression: Encounter for medical screening examination Condition: Stable Critical Care Time: No Referrals: JUAN CARLOS BERGMAN [Primary Care Provider] - Follow up/PCP as directed Additional Instructions: Wear your oxygen all the time as instructed. Keep your follow-up appointment that you already have. Take all your medications as prescribed
[2021-07-29 12:08] VITALS: O2SAT 92
[2021-07-29 12:37] LABS: Hematocrit 42.5 % (42-50); Hemoglobin 15.2 gm/dl (12.5-18.0); Mean Cell Volume 102.9 fl (78-100); Mean Corpuscular Hemoglobin 36.8 pg (26-32); Mean Corpuscular Hgb Concent. 35.8 g/dl (32-36); Red Blood Count 4.13 M/mm3 (4.1-5.6); Red Cell Distribution Width 12.9 % (11.5-14.0); White Blood Count 8.2 K/mm3 (4.0-10.5)
[2021-07-29 12:38] LABS: Platelet Count 206 K/mm3 (150-450)
[2021-07-29 12:49] LABS: ALBUMIN 3.1 g/dL (3.5-5.0); ALKALINE PHOSPHATASE 44 U/L (38-126); ANION GAP 9.1 MEQ/L (5-15); BLOOD UREA NITROGEN 11 mg/dL (9-20); CHLORIDE 99 mmol/L (98-107); Calcium 7.5 mg/dL (8.4-10.2); Carbon Dioxide 26 mmol/L (22-30); Creatinine 1 0.77 mg/dL (0.66-1.25); EST GLOMERULAR FILTRATION RATE > 60.0 ML/MIN; Glucose 123 mg/dL (74-106); NT PRO BNP 284 pg/mL (0-900); Potassium 3.4 mmol/L (3.5-5.1); SGOT/AST 84 U/L (17-59); SGPT/ALT 48 U/L (0-50); SODIUM 131 mmol/L (137-145); Total Protein 5.9 g/dL (6.3-8.2)
[2021-07-29 13:40] LABS: BAND 17 % (0.0-2.0); Eosinophil 1 % (0.00-3.0); Lymphocytes 6 % (24-44); Monocyte 3 % (0.0-12.0); Neutrophils 73 % (36.-66.); Total Cells Counted 100
[2021-07-29 13:42] LABS: Macrocytosis 1+; Platelet Estimate NORMAL (NORMAL)
[2021-07-29 13:43] LABS: Absolute Neutrophil Ct (ANC) 7.34 (1.4-6.9)
[2021-07-29 14:09] VITALS: BP 122/79; PULSE 82
== END 2021-07-29 14:55 | disposition home or self-care (01) ==
LOC: ED 11:39
DX: Z00.8 Encounter for other general examination (principal); R06.02 Shortness of breath; J44.0 Chronic obstructive pulmonary disease with (acute) lower respiratory infection; Z72.0 Tobacco use; Z99.81 Dependence on supplemental oxygen; U07.1 COVID-19; J12.82 Pneumonia due to coronavirus disease 2019; A08.39 Other viral enteritis; R50.9 Fever, unspecified; E86.0 Dehydration; E87.0 Hyperosmolality and hypernatremia
CPT/HCPCS: 36000; 36415; 80053; 83605; 83880; 84484; 85025; 93005; 93041; 94760; 99284

== ENCOUNTER 2024-12-05 15:30 | Emergency (ER) | payer OTHER ==
--- NOTE | 2024-12-05 17:08 | ERPHSYRPT ---
- History of Present Illness Source: patient, family Exam Limitations: no limitations Physician History: Patient is here with left elbow pain. Patient states that he hurt it approximately 1 week ago fell on it causing abrasion. Patient then went on to be doing okay for a week. However yesterday he cut the lawn felt that it got worse. States it has swollen up overnight. Now feels more tender. No systemic signs of illness no fever, tachycardia. Patient does have a small abrasion over the tip of his elbow. Allergies/Adverse Reactions: No Known Drug Allergies Allergy (Verified 07/29/21 12:05) Home Medications: Fluticasone/Salmeterol 115/21 [Advair Hfa 115/21 Common canister*] 1 puff IN DAILY 07/25/21 [History] Hx Tetanus, Diphtheria Vaccination/Date Given: Yes Hx Influenza Vaccination/Date Given: Yes Hx Pneumococcal Vaccination/Date Given: No - Past Medical History Pertinent Past Medical History: Yes Respiratory History: COPD, Emphysema - Past Surgical History Past Surgical History: Yes Other Surgical History: RLL LUNG PARTIAL REMOVAL - Social History Exposure to second hand smoke: Yes - Nursing Vital Signs Nursing Vital Signs: Initial Vital Signs Temperature 98.1 F 12/05/24 18:14 Pulse Rate 83 12/05/24 18:14 Respiratory Rate 18 12/05/24 18:14 Blood Pressure 136/80 12/05/24 18:14 O2 Sat by Pulse Oximetry 97 12/05/24 18:14 Pain Scale Pain Intensity 8 - Physical Exam Comments: 12/05/24 17:06 Review of Systems Constitutional: Negative for fever. HENT: Negative for congestion. Respiratory: Negative for shortness of breath. Cardiovascular: Negative for chest pain. Gastrointestinal: Negative for abdominal pain. Genitourinary: Negative for dysuria. Musculoskeletal: Negative for back pain. Skin: Negative for rash. Neurological: Negative for headaches. Psychiatric/Behavioral: Negative for behavioral problems. All other systems reviewed and are negative. Physical Exam Vitals signs and nursing note reviewed. Constitutional: Appearance: Patient is well-developed. HENT: Head: Normocephalic and atraumatic. Eyes: Conjunctiva/sclera: Conjunctivae normal. Neck: Musculoskeletal: Normal range of motion. Trachea: No tracheal deviation. Cardiovascular: Rate and Rhythm: Normal rate. Heart sounds normal. Pulmonary: Effort: Pulmonary effort is normal. No respiratory distress. Abdominal: Palpations: Abdomen is soft. Musculoskeletal: General: Left elbow tenderness, Elbow (Olecranon) Bursitis. No obvious deformity, sensation intact, 2+ capillary refill, 2 point tactile discrimination intact. 5 out of 5 strength. Full range of motion with pain. Compartments are soft, nontender. Overlying skin shows no tenting, bruising, ecchymosis. General: Skin is warm and dry. Neurological/ Psychiatric: Mental Status: Mental status, behavior, interaction with environment is appropriate for patient's age and condition - Course Nursing assessment & vital signs reviewed: Yes Ordered Tests: Active Orders 24 hr Category Date Time Status ELBOW (MINIMUM 3 VIEWS) Stat Exams 12/05/24 16:54 Taken - Progress Progress: improved Progress Note: 12/05/24 17:07 Likely left elbow olecranon bursitis. Will obtain x-ray. Does not appear acutely infected today. Will most likely give antibiotics out of an abundance of caution, close follow-up with orthopedic surgery. Return here sooner for any new or changing symptoms. 12/05/24 18:24 X-ray demonstrates no obvious fracture. As above Keflex to go home with, Ortho follow-up in 24 to 48 hours. He will go to the Ortho walk-in clinic. Return here sooner for any new or changing symptoms. Counseled pt/family regarding: diagnosis, rad results - Departure Departure Disposition: Home Clinical Impression: Bursitis of left elbow Condition: Stable Critical Care Time: No Referrals: JUAN CARLOS BERGMAN [Primary Care Provider, PULMONARY MEDICINE] - Follow up/PCP as directed Prescriptions: Cephalexin Mh 500 mg [Keflex 500 mg] 500 mg PO TID #21 cap Outpatient Orders: Ortho Referral Time Frame: 1 Day, Facility: [facility], Location: ORTHO CLINIC
[2024-12-05 18:19] VITALS: BP 136/80; PULSE 83; RESP 18; TEMP 98.1; O2SAT 97
--- NOTE | 2024-12-06 07:35 | XRAY ---
Indication: Pain following injury. Comparison: None 3 view left elbow demonstrates posterior soft tissue swelling versus bursitis. Incidental tiny spurring lateral epicondyle. No other bony, articular, or soft tissue abnormalities.
== END 2024-12-05 18:25 | disposition home or self-care (01) ==
LOC: ED 15:30
DX: M70.32 Other bursitis of elbow, left elbow (principal); Z79.899 Other long term (current) drug therapy; Z72.0 Tobacco use
CPT/HCPCS: 73080; 99282; 99283